=== PATIENT | male | born 2000 | race Caucasian/White ===

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

== ENCOUNTER 2021-10-08 22:23 | Emergency (ER) | payer OTHER ==
[2021-10-08] MEDS ORDERED: DIPH,PERTUS(ACELL)TETVAC-LF 0.5 ML VIAL IM ONE (22:26)
[2021-10-08] MEDS ORDERED: HYDROmorphone 1 MG/ML 1 ML SYRINGE IVP STA ×2 (22:27→23:32)
[2021-10-08 22:28] VITALS: BP 113/96; PULSE 100; RESP 18; TEMP 97.6
[2021-10-08 22:47] LABS: Basophils # (A) 0.2 k/uL (0-0.2); Basophils % (A) 1 %; Eosinophils # (A) 0.3 k/uL (0-0.7); Eosinophils % (A) 2 %; HGB 14.6 gm/dL (13.0-17.5); Lymphocytes # (A) 6.5 k/uL (1.0-4.8); Lymphocytes % (A) 44 %; MCH 29.9 pg (25.0-35.0); MCV 96.4 fL (80.0-100.0); Mean Platelet Volume 7.1; Monocytes # (A) 0.7 k/uL (0-1.0); Monocytes % (A) 5 %; Neutrophils # (A) 6.9 k/uL (1.3-7.7); Neutrophils % (A) 46 %; Platelet Count 356 k/uL (150-450); RBC 4.87 m/uL (4.30-5.90); RDW 13.1 % (11.5-15.5); WBC 14.8 k/uL (4.0-11.0)
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
[2021-10-08 22:56] LABS: ALT 102 U/L (4-49); AST 152 U/L (17-59); African American GFR (CKD) >90 (>60 ml/min/1.73 sqM); Albumin 4.1 g/dL (3.5-5.0); Alkaline Phosphatase 61 U/L (38-126); Anion Gap 12 mmol/L; Blood Urea Nitrogen 13 mg/dL (9-20); Calcium 8.3 mg/dL (8.4-10.2); Carbon Dioxide 19 mmol/L (22-30); Chloride 113 mmol/L (98-107); Glucose 125 mg/dL (74-99); Non-African American GFR(CKD) >90 (>60 ml/min/1.73 sqM); Potassium 3.7 mmol/L (3.5-5.1); Sodium 144 mmol/L (137-145); Total Bilirubin 0.5 mg/dL (0.2-1.3); Total Protein 6.6 g/dL (6.3-8.2)
[2021-10-08 22:58] LABS: Alcohol 212 mg/dL
[2021-10-08 23:07] LABS: INR 0.9 (<1.2); Prothrombin Time 10.3 sec (9.0-12.0)
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
== END 2021-10-08 23:58 | disposition other institution (70) ==
LOC: EC 22:23
DX: S72.302A Unspecified fracture of shaft of left femur, initial encounter for closed fracture (principal); S82.201A Unspecified fracture of shaft of right tibia, initial encounter for closed fracture; F10.129 Alcohol abuse with intoxication, unspecified; V89.2XXA Person injured in unspecified motor-vehicle accident, traffic, initial encounter
CPT/HCPCS: 99291; 96365; 90471; 96376; 96375; 29505; 29515; 36415; 93005; 86900; 86901; 80053; 83605; 84484; 85025; 85610; 85730; 86850; 80320; 73590; 73620; 72170; 73552; 71045; 72125; 70450; 71260; 74177; 90715; J0690; J1170; Q9967